=== PATIENT | female | born 1955 | race Caucasian/White ===

== ENCOUNTER 2023-01-08 17:52 | Emergency (ER) | payer MEDICARE, MEDICAID, SELFPAY ==
[2023-01-08 17:53] VITALS: BP 115/62; PULSE 61; RESP 18; TEMP 36.6; O2SAT 100
--- NOTE | 2023-01-08 18:14 | EDS_ITS ---
HPI History of Present Illness Chief Complaint: Lower Extremity Injury Informant: patient Narrative Narrative: Patient complains of some edema around her right foot and ankle area. Patient has noticed this just over the last day. She states she feels fine. She is not short of breath or having chest pain. 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 The foot really is not hurting on the right. Its not red. No fevers or chills. No history of gout. She states she has no known injury. She did eat a different meal that was made for her last night and was wondering if possibly that she had a reaction or if it was salty. Patient has no history of DVT or PE. 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 She is on Plavix regularly. No history of peripheral vascular disease. [facility] Medical History (Updated 01/08/23 @ 19:[address] Hunter Rojo MD) Amputee, below knee Aneurysm Stroke Home Medications oxycodone-acetaminophen 5 mg-325 mg tablet 1 - 2 tab PO Q4H PRN PRN Pain #20 tabs 09/13/16 [Rx Last Taken Unknown] Allergy/AdvReac Type Severity Reaction Status Date / Time ibuprofen Allergy Hives Verified 03/10/19 12:44 Social History Smoking Status: Current every day smoker tobacco type: cigarettes ROS ROS ED ROS Narrative A complete review of systems was performed and is negative except as documented in the history of present illness. Some specific details below. Constitutional: No recent fevers or chills. No malaise. She does not feel ill in any way. EYE: No discharge, visual complaints, or pain. ENT: No difficulty swallowing. No swelling. No pain. No reflux symptoms. CV: No palpitations or chest pain. No lightheadedness syncope or presyncope Respiratory: No shortness of breath. No cough. No weight gain. GI: No abdominal pain. No nausea vomiting diarrhea. No blood in stool. : No frequency dysuria or hematuria. Musculoskeletal: No recent trauma that she recalls. See history of present illness Skin: No rash. Nondiaphoretic. Neuro: No weakness or numbness. Endocrine: No polyuria or polydipsia. EXAM Physical Exam Narrative Exam Narrative: CONSTITUTIONAL: Patient is nontoxic in appearance. The patient looks comfortable. Work of breathing looks normal. HEENT: No notable trauma. Mucous membranes moist. EYES: No conjunctival injection. NECK:No JVD. No stridor. CARDIOVASCULAR: Regular rate. Regular rhythm. No notable murmur. No JVD. RESPIRATORY: No respiratory distress. Breathing is unlabored. No wheezes. No rhonchi. No rales. No pain with a deep breath. No chest wall tenderness. Saturations are normal at 100% saturation on room air. GASTROINTESTINAL: Not distended. Bowel sounds are normal. No tenderness. No guarding. No rebound. No palpable mass. No bruit is heard. GENITOURINARY: No tenderness over the bladder. No CVA tenderness. MUSCULOSKELETAL: Patient's 6 stump on the left looks normal. No edema. The foot on the right does have a little bit edema on the dorsal aspect and a little bit on of the ankle. Up on the tib-fib is really not showing edema. No calf tenderness. She has excellent very palpable pulses both dorsalis pedis and posterior tibial. There is no erythema. There is no warmth. There is no tenderness. No sign of acute infection. There is no deformity. I see no bites. NEUROLOGICAL: Patient is alert and appropriate. No focal deficit noted. SKIN: No noted rashes. No diaphoresis. PSYCHIATRIC: Patient is calm. Mood is appropriate. Const Vital Signs: 01/08/23 17:53 Temperature 97.8 F Temperature Source Temporal Pulse Rate 61 Respiratory Rate 18 Blood Pressure 115/62 Blood Pressure Mean 79 Pulse Ox 100 Oxygen Delivery Method Room Air MDM MDM MDM Narrative Medical decision making narrative: ConsiderPatient CBC shows normal white count hemoglobin and platelets. Electrolytes are normal including renal function glucose and calcium. My independent interpretation the patient's three-view x-ray of her right foot shows prior ankle surgery hardware. No sign of lucency. There are some arthritic changes. No gas. No obvious fracture or dislocation. Final reading was soft tissue swelling but no evidence of fracture. Patient's lower extremity ultrasound showed no acute process. I looked at these images and looked everything was compressible. I did talk with the tech is negative for any sign of DVT. Patient has no sign of infection arterial insufficiency, venous insufficiency or clot, fracture, kidney failure. She has no symptoms of congestive heart failure. She can go home. This might be diet and heat related. She should elevate the leg. We did discuss specific items or changes that would bring her back. Lab Data Attestation: I reviewed the patient's lab results. Labs: Laboratory Results - last 24 hr 01/08/23 01/08/23 18:15 18:15 WBC 10.5 RBC 4.91 Hgb 14.4 Hct 44.0 MCV 89.6 MCH 29.3 MCHC 32.7 RDW Std Deviation 52.9 H RDW Coeff of Arianne 16.0 H Plt Count 260 MPV 10.5 Immature Gran % (Auto) 0.300 Neut % (Auto) 64.1 Lymph % (Auto) 24.1 [place] % (Auto) 7.6 Eos % (Auto) 2.9 Baso % (Auto) 1.0 Absolute Neuts (auto) 6.7 Absolute Lymphs (auto) 2.52 Nucleated RBC % 0 Sodium 143 Potassium 4.0 Chloride 111 H Carbon Dioxide 26.0 Anion Gap 6 BUN 18 Creatinine 0.74 Est GFR (MDRD) Af Amer 101 Est GFR (MDRD) Non-Af 83 BUN/Creatinine Ratio 24.3 H Glucose 102 Calcium 9.3 Radiography Diagnostic Testing: Clinical Impression(s) from Imaging Studies Foot X-Ray 01/08/23 18:26 IMPRESSION: Soft tissue swelling. No evidence of fracture. Surgical hardware distal left fibula. Electronically Signed: Nguyen Wise MD at 18:52 EDT Reading Location ID and State: [facility] / MD Tel , Service support , Discharge Plan Triage Chief Complaint: Lower Extremity Injury ED Provider: Hunter Rojo Dx/Rx/DC Orders Clinical Impression: Edema of right foot Instructions: ED Lymphedema Prescriptions: No Action oxycodone-acetaminophen 1 TABLET tablet 1 - 2 tab PO Q4H PRN PRN (Reason: Pain) Qty: 20 0RF Primary Care Provider: Michael Brooks Referrals: Michael Brooks MD [Primary Care Provider] - 3-5 Days if not improving Care Physician,No Primary [Non-Staff] - Disposition Disposition: Home, Self Care
--- NOTE | 2023-01-08 18:26 | RAD_ITS ---
INDICATION: swelling EXAMINATION/TECHNIQUE: X-RAY - RIGHT XR Foot Min 3 Views 3 VIEWS COMPARISON: FINDINGS: BONES: No fracture demonstrated. Small plantar calcaneal spur. Surgical hardware in the distal fibula plate and screws partially included. JOINTS: No dislocation. SOFT TISSUES: Soft tissue swelling dorsally overlying the metatarsals, and anterior to the ankle. RAD/Foot min 3 Views IMPRESSION: Soft tissue swelling. No evidence of fracture. Surgical hardware distal left fibula. Electronically Signed: Nguyen Wise MD at 18:52 EDT ,
[2023-01-08 18:27] LABS: Absolute Lymphocyte Count 2.52 X10^3/uL (0.83-4.51); Absolute Neutrophil Count 6.7 X10^3/uL (2.0-7.7); Eosinophils% 2.9 % (0-5); Hemoglobin 14.4 g/dL (12.0-15.0); Lymphocyte # 2.52 X10^3/ul (0.83-4.51); Lymphocyte % 24.1 % (19-41); Mean Corp Hgb Conc 32.7 g/dL (32-36); Mean Corpuscular Hgb 29.3 pg (27.0-32.0); Mean Corpuscular Volume 89.6 fL (81-99); Mean Platelet Vol. 10.5 fl (6.2-12.0); Monocyte% 7.6 % (0-10); NRBC Flagged by Analyzer 0 % (0-5); Neutrophil # 6.71 X10^3/uL (2.7-7.7); Neutrophil % 64.1 % (47-70); Platelet Count 260 K/mm3 (150-450); RBC Distribution Width SD 52.9 fl (35.1-43.9); Red Blood Count 4.91 M/mm3 (4.2-5.4); White Blood Count 10.5 K/mm3 (4.4-11.0)
--- NOTE | 2023-01-08 18:30 | US_ITS ---
INDICATION: RT CALF SWELLING SINCE NOON EXAMINATION: Ultrasound US Venous Duplex LE Unilat / Limited TECHNIQUE: [place] scale, pulse wave, and color flow Doppler imaging was performed of the lower extremity venous system. The RIGHT greater saphenous, common femoral, femoral, and popliteal veins were interrogated. COMPARISON: No pertinent previous for comparison.. FINDINGS: There is normal compression, augmentation, and signal throughout the visualized deep lower extremity veins. No mass or fluid collection. There is a 2.7 x 3.4 x 1.0 cm mildly hyperechoic structure the in subcutaneous soft tissue planes of the anterior mid thigh. This does not extend into the deep muscular fascial planes of the thigh.. No abnormal blood flow noted. US/Venous Duplex Imag/Limited/Uni IMPRESSION: 1. No sonographic evidence of deep venous thrombosis/DVT in the RIGHT lower extremity venous system. 2. No sonographic evidence of superficial thrombophlebitis. 3. 2.7 x 3.4 x 1.0 cm hyperechoic structure in the subcutaneous soft tissues of the anterior thigh. This may represent a small subcutaneous lipoma. No abnormal blood flow or abnormal fluid collection. Electronically Signed: Prosper Collins MD at 19:17 EDT ,
[2023-01-08 18:42] LABS: Anion Gap 6 (5-15); BUN 18 mg/dL (7-18); BUN/Creat Ratio 24.3 RATIO (10-20); Calcium,Total 9.3 mg/dL (8.5-10.1); Chloride 111 mmol/L (98-107); Creatinine, Serum 0.74 mg/dL (0.55-1.02); EST Glomerular Filtration Rate 83 mL/min (>60); Est Glom Filt Rate - Afr Amer 101 mL/min (>60); Glucose 102 mg/dL (74-106); Sodium Level 143 mmol/L (136-145)
[2023-01-08 19:05] VITALS: BMI 31.1
== END 2023-01-08 19:31 | disposition home or self-care (01) ==
PROVIDERS: Emergency Provider Emergency Medicine; PCP Family Medicine; Visit Provider Emergency Medicine
DX: R60.0 Localized edema (principal); F17.210 Nicotine dependence, cigarettes, uncomplicated; Z86.73 Personal history of transient ischemic attack (TIA), and cerebral infarction without residual deficits; Z79.02 Long term (current) use of antithrombotics/antiplatelets
CPT/HCPCS: 73630; 80048; 85025; 93971; 99282; A4216

== ENCOUNTER 2024-04-05 18:47 | Emergency (ER) | payer MEDICARE, MEDICAID, SELFPAY ==
[2024-04-05 18:48] VITALS: BP 128/63; PULSE 79; RESP 18; TEMP 36.3; O2SAT 96
--- NOTE | 2024-04-05 19:40 | RAD_ITS ---
EXAM: XR LEFT SHOULDER COMPLETE, 2 OR MORE VIEWS CLINICAL INDICATION: FALL TECHNIQUE: Two or more views of the left shoulder. COMPARISON: No relevant prior studies available. FINDINGS: BONES/JOINTS: Comminuted proximal left humeral fracture. No dislocation. No sclerotic or destructive changes observed. SOFT TISSUES: Unremarkable. No soft tissue swelling or gas. No radiopaque foreign body. RAD/Shoulder min 2 Views IMPRESSION: Comminuted proximal left humeral fracture. No dislocation. Electronically Signed: Chon Mcelroy MD at 20:13 EDT ,
--- NOTE | 2024-04-05 20:37 | CT_ITS ---
STUDY: CT BRAIN WITHOUT CONTRAST REASON FOR EXAM: Female, 68 years old. head injury Individualized dose optimization techniques were used for this CT. TECHNIQUE: Transaxial CT imaging of the brain was performed without administration of intravenous contrast material. COMPARISON: None FINDINGS: There are calcifications around the carotid artery. These are noted in the cavernous carotid arteries. Normal calvarium. Normal soft tissues. Old right frontal lobe infarct. There is mild cerebral atrophy with widening of the extra-axial spaces and ventricular dilatation. There are areas of decreased attenuation within the white matter tracts of the supratentorial brain, consistent with microvascular disease changes. Normal basal ganglia and thalami. Normal brainstem. There is mild cerebellar atrophy. There is no intracranial hemorrhage. There are no findings of an acute ischemic infarction. There is fluid in the right mastoid air cells. There is fluid in the right middle ear. 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 Old infarct in the right MCA region. Prominent extra-axial spaces. ASPECTS Score for Acute Strokes: 10 CT/Brain/Head without Contrast IMPRESSION: There are no acute findings. Electronically Signed: Chon Mcelroy MD at 21:22 EDT ,
--- NOTE | 2024-04-05 20:37 | CT_ITS ---
EXAM: CT LEFT UPPER EXTREMITY WITHOUT INTRAVENOUS CONTRAST, SHOULDER CLINICAL INDICATION: fall, fracture humerous TECHNIQUE: Helically acquired images were obtained of the left shoulder without intravenous contrast. 2-D reformats were performed by the technologist. This CT exam was performed using one or more of the following dose reduction techniques: automated exposure control, adjustment of the mA and/or kV according to patient size, and/or use of iterative reconstruction technique. RADIATION DOSE: CTDIvol = 24.88 mGy, DLP = 523.79 mGy-cm COMPARISON: No relevant prior studies available. FINDINGS: BONES/JOINTS: Comminuted and impacted left proximal humeral fracture. Degenerative changes of the left AC joint. SOFT TISSUES: Unremarkable. No soft tissue swelling or gas. No radiopaque foreign body. CT/Extremity Upper without Contra IMPRESSION: Comminuted and impacted left proximal humeral fracture. Electronically Signed: Chon Mcelroy MD at 21:24 EDT ,
--- NOTE | 2024-04-05 20:37 | CT_ITS ---
EXAM: CT SPINE - CERVICAL WITHOUT IV REASON FOR EXAM: Female, 68 years old. NECK PAIN fall HISTORY: NECK PAIN fall Individualized dose optimization techniques were used for this CT. TECHNIQUE: Multiplanar images were obtained of the cervical spine. IV contrast was not utilized. COMPARISON: None. FINDINGS: The vertebral bodies do maintain their height. The odontoid process is intact. No pre-vertebral soft tissue swelling is seen. The intravertebral disc height is lost. There are scattered lymph nodes in the neck. There are degenerative changes of the osseous structures. There is bilateral facet arthropathy. There are scattered levels of foraminal stenosis. There are vascular calcifications. There is fluid in the right mastoid air cells. There is fluid in the right middle ear. CT/Spine Cervical without Contras IMPRESSION: Degenerative changes of the cervical spine. There are no acute findings. Electronically Signed: Chon Mcelroy MD at 21:26 EDT ,
[2024-04-05] MEDS: Morphine 4 MG/ML Syringe IM (20:45)
[2024-04-05] MEDS: Ondansetron ODT 4 MG Tablet PO (20:45)
--- NOTE | 2024-04-05 20:46 | EX.ED.DYSGE1 ---
HPI <DORON Virk - Last Filed: 04/05/24 21:50> History of Present Illness Chief Complaint: Fall Narrative Narrative: Patient is a 68-year-old female with history of CVA with left-sided weakness, below the knee amputation of left leg who uses a wheelchair presents to the [facility] apartment after falling out of the wheelchair. Patient states she had a hole, falling forward landing on her left side. Patient that she did strike her head, she did have immediate pain to her left shoulder. She has decreased range of motion and is here for evaluation. [facility] <DORON Virk - Last Filed: 04/05/24 21:50> [facility] Medical History (Updated 04/05/24 @ 21:48 by DORON Virk) Amputee, below knee Aneurysm Stroke Home Medications ?Medication ?Instructions ?Recorded ?Last Taken ?Type oxycodone-acetaminophen 5 mg-325 1 - 2 tab PO Q4H PRN PRN Pain #20 09/13/16 Unknown Rx mg tablet tabs oxycodone-acetaminophen 5 mg-325 1 tab PO Q8H PRN pain 3 days #10 04/05/24 Unknown Rx mg tablet (Percocet) tabs Allergy/AdvReac Type Severity Reaction Status Date / Time ibuprofen Allergy Hives Verified 04/05/24 18:48 Social History Smoking Status: Current every day smoker tobacco type: cigarettes ROS <DORON Virk - Last Filed: 04/05/24 21:50> ROS ED ROS Narrative Constitutional: Negative for fever, chills, weight loss, weakness Eyes: Negative for vision loss, vision change, double vision ENT: Negative for any sore throat, ear pain, congestion Cardiovascular: Negative for any chest pain, tightness, palpitations Respiratory: Negative for any cough, sputum production, hemoptysis, dyspnea, dyspnea on exertion, orthopnea Gastrointestinal: Negative for any abdominal pain, nausea, vomiting, diarrhea, constipation, blood in stool, blood in vomit : Negative for any urinary frequency, dysuria, retention, blood in urine Muscle skeletal: Negative for any neck pain, back pain. Positive for left shoulder pain Neurological: Negative for any headache, syncope, dizziness Skin: Negative for any rashes, itching, abrasions, lacerations Psychiatric: Negative for any depression, anxiety, stress, suicidal ideation, homicidal ideation Hematologic: Negative for any excessive bruising, easy bleeding EXAM <DORON Virk - Last Filed: 04/05/24 21:50> Physical Exam Narrative Exam Narrative: Vital signs reviewed. HEET: Head normocephalic atraumatic, TMs clear bilaterally. Posterior pharynx is clear, moist mucous membranes. Nares clear bilaterally. Pupils are equal round reactive to light. Negative for any hemotympanum or septal hematoma. Neck: Supple with no lymphadenopathy or tenderness. No signs of meningismus. Cardiac: Regular rate and rhythm no murmurs gallops or rubs, equal peripheral pulses bilaterally. Respiratory: Lungs clear to auscultation bilaterally. No chest tenderness. Abdomen: Soft, nontender, nondistended. No abdominal bruit or pulsatile masses. No hepatosplenomegaly Extremities: Patient does have some deformity to the left shoulder. Patient has pain to the lateral shoulder, worsening pain with any sort of flexion or extension, significant pain with any abduction. +2 radial pulse. 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 However this is baseline. No neurological focal deficits that are new. Neuro: Cranial nerves II through XII intact, no focal neurological deficits. Skin: Clean dry and intact with no rash, purpura, petechiae, vesicles or pustules. Backs/flank: No CVA tenderness, no midline spinal tenderness, no deformity. Psych: Normal mood and affect. No SI, HI or acute psychosis. Const Vital Signs: 04/05/24 18:48 04/05/24 22:05 Temperature 97.4 F L 97.8 F Temperature Source Temporal Pulse Rate 79 69 Respiratory Rate 18 17 Blood Pressure 128/63 H 142/74 H Blood Pressure Mean 84 96 Pulse Ox 96 99 Oxygen Delivery Method Room Air Positive well nourished and well developed General Appearance ED: well developed <Dr. Aaron Dunaway, DO - Last Filed: 04/05/24 23:19> Physical Exam Const Vital Signs: 04/05/24 18:48 04/05/24 22:05 Temperature 97.4 F L 97.8 F Temperature Source Temporal Pulse Rate 79 69 Respiratory Rate 18 17 Blood Pressure 128/63 H 142/74 H Blood Pressure Mean 84 96 Pulse Ox 96 99 Oxygen Delivery Method Room Air [facility] <DORON Virk - Last Filed: 04/05/24 21:50> [facility] Radiography Diagnostic Testing: Clinical Impression(s) from Imaging Studies Shoulder X-Ray 04/05/24 19:40 IMPRESSION: Comminuted proximal left humeral fracture. No dislocation. Electronically Signed: Chon Mcelroy MD at 20:13 EDT , Brain CT 04/05/24 20:37 IMPRESSION: There are no acute findings. Electronically Signed: Chon Mcelroy MD at 21:22 EDT , Cervical Spine CT 04/05/24 20:37 IMPRESSION: Degenerative changes of the cervical spine. There are no acute findings. Electronically Signed: Chon Mcelroy MD at 21:26 EDT , Upper Extremity CT 04/05/24 20:37 IMPRESSION: Comminuted and impacted left proximal humeral fracture. Electronically Signed: Chon Mcelroy MD at 21:24 EDT , Treatment and Re-Evaluation :: Differential diagnosis includes however is not limited to: Humeral fracture, shoulder contusion, shoulder dislocation, clavicular fracture, concussion Patient appears to be in no obvious respiratory distress, vital signs are stable, nontoxic. Presents to the emergency department with mechanical fall out of the wheelchair, left shoulder pain. Patient does look like she does have significant pain with any side of movement. Patient's x-ray shows comminuted proximal left humeral fracture. No dislocation. On my examination, patient had significant mount of pain. There is some deformity. Patient did fall and strike her head, she will see the CT scan the brain and cervical spine. We were also CT the patient's shoulder. All radiologic examinations were read, reviewed by the emergency department attending. From these reads, a plan of care will be put in place. Patient was given IM morphine, oral Zofran. Patient CT scans show a normal CT scan of the brain, cervical spine. Patient CT scan of the shoulder shows a comminuted and impacted left proximal humeral fracture. At this time, there is no dislocation. Patient be given 1 more oxycodone prior to discharge. She will be given pain medicine for home. I will provide the patient with appropriate follow-up with orthopedics, she will be given a sling. She was given return precautions. All questions answered, patient stable for discharge <Dr. Aaron Dunaway, DO - Last Filed: 04/05/24 23:19> MDM Radiography Diagnostic Testing: Clinical Impression(s) from Imaging Studies Shoulder X-Ray 04/05/24 19:40 IMPRESSION: Comminuted proximal left humeral fracture. No dislocation. Electronically Signed: Chon Mcelroy MD at 20:13 EDT , Brain CT 04/05/24 20:37 IMPRESSION: There are no acute findings. Electronically Signed: Chon Mcelroy MD at 21:22 EDT , Cervical Spine CT 04/05/24 20:37 IMPRESSION: Degenerative changes of the cervical spine. There are no acute findings. Electronically Signed: Chon Mcelroy MD at 21:26 EDT , Upper Extremity CT 04/05/24 20:37 IMPRESSION: Comminuted and impacted left proximal humeral fracture. Electronically Signed: Chon Mcelroy MD at 21:24 EDT Reading Location ID and State: [facility] / [place] , Service support , Treatment and Re-Evaluation :: Differential diagnosis includes however is not limited to: Humeral fracture, shoulder contusion, shoulder dislocation, clavicular fracture, concussion Patient appears to be in no obvious respiratory distress, vital signs are stable, nontoxic. Presents to the emergency department with mechanical fall out of the wheelchair, left shoulder pain. Patient does look like she does have significant pain with any side of movement. Patient's x-ray shows comminuted proximal left humeral fracture. No dislocation. On my examination, patient had significant mount of pain. There is some deformity. Patient did fall and strike her head, she will see the CT scan the brain and cervical spine. We were also CT the patient's shoulder. All radiologic examinations were read, reviewed by the emergency department attending. From these reads, a plan of care will be put in place. Patient was given IM morphine, oral Zofran. Patient CT scans show a normal CT scan of the brain, cervical spine. Patient CT scan of the shoulder shows a comminuted and impacted left proximal humeral fracture. At this time, there is no dislocation. Patient be given 1 more oxycodone prior to discharge. She will be given pain medicine for home. I will provide the patient with appropriate follow-up with orthopedics, she will be given a sling. She was given return precautions. All questions answered, patient stable for discharge ED attending note: I evaluated the patient in conjunction with the JERAMIE. I agree with his/her statements and above findings. I have personally performed a face to face assessment of the patient and have reviewed the JERAMIE Note. I performed a substantive portion of the visit including all aspects of the following. I personally saw the patient performed chart review, physical exam, reviewed labs, imaging (if obtained), and formulated a treatment and management plan. This note was generated with nivioation software. It may contain incorrect words, spelling, and punctuation that were not noted in review of the chart prior to signing. Discharge Plan Triage Chief Complaint: Fall ED Midlevel Provider: Som Lemon ED Provider: Aaron Dunaway Dx/Rx/DC Orders Clinical Impression: Fall, Fracture of proximal humerus Instructions: ED Fracture, Upper Extremity, ED Fracture, Shoulder Prescriptions: New oxycodone-acetaminophen [Percocet] 5-325 mg tablet 1 tab PO Q8H PRN (Reason: pain) 3 Days Qty: 10 0RF No Action oxycodone-acetaminophen 1 TABLET tablet 1 - 2 tab PO Q4H PRN PRN (Reason: Pain) Qty: 20 0RF Primary Care Provider: Michael Brooks Referrals: Michael Brooks MD [Primary Care Provider] - Mahamed Frost MD [Med Staff - Active Staff] - Activity Restrictions/Additional Instructions: You need to follow-up with orthopedics. Call your surgeon regarding your thumb. You need to wear the sling at all times while you are upright and moving. You may take it off while sleeping. Return for any worsening symptoms Print Language: Yi Disposition Disposition: Home, Self Care Discharge Date/Time: 04/05/24 22:06
[2024-04-05] MEDS: oxyCODONE 5 MG Tablet PO (21:58)
[2024-04-05 22:05] VITALS: BP 142/74; PULSE 69; RESP 17; TEMP 36.6; O2SAT 99
== END 2024-04-05 22:06 | disposition home or self-care (01) ==
PROVIDERS: Emergency Provider Emergency Medicine; PCP Family Medicine; Visit Provider Emergency Medicine
DX: S42.202A Unspecified fracture of upper end of left humerus, initial encounter for closed fracture (principal); Z89.512 Acquired absence of left leg below knee; I69.354 Hemiplegia and hemiparesis following cerebral infarction affecting left non-dominant side; S09.90XA Unspecified injury of head, initial encounter; W05.0XXA Fall from non-moving wheelchair, initial encounter; F17.210 Nicotine dependence, cigarettes, uncomplicated
CPT/HCPCS: 70450; 72125; 73030; 73200; 99283